=== PATIENT | female | born 1955 | race Caucasian/White ===

== ENCOUNTER 2016-04-05 08:00 | Outpatient (CLI) | payer BC | END 2016-04-05 08:01 | disposition home or self-care (01) | DX: R10.11 Right upper quadrant pain (principal) ==

== ENCOUNTER 2016-04-05 10:05 | Outpatient (CLI) | payer BC | END 2016-04-05 10:06 | disposition home or self-care (01) | DX: R10.11 Right upper quadrant pain (principal); R10.31 Right lower quadrant pain ==

== ENCOUNTER 2016-07-11 10:48 | Outpatient (CLI) | payer BC ==
[2016-07-11 10:56] LABS: CALCIUM 9.2 mg/dL (8.5-10.3); CREATININE 0.8 mg/dL (0.4-1.0); POTASSIUM 3.9 mmol/L (3.5-5.0)
[2016-07-11] MEDS ORDERED: IOPAMIDOL-300 100 ML VIAL IVP ONE (11:43)
[2016-07-11] MEDS ORDERED: IOPAMIDOL-300 50 ML VIAL PO ONE (11:43)
--- NOTE | 2016-07-11 13:16 | CT Report ---
CT OF THE ABDOMEN AND PELVIS WITH CONTRAST: 07/11/2016 CLINICAL INDICATION: Right lower quadrant pain. COMPARISON: CTA of abdomen and pelvis of 11/13/2014. TECHNIQUE: Axial CT images of the abdomen and pelvis were obtained with 100 mL of Isovue-300 intraven ously as well as oral contrast. FINDINGS: Limited evaluation of the lung bases is unremarkable. ABDOMEN: The liver, spleen, pancreas, kidneys and adrenal glands are unremarkable. The patient is sta tus post cholecystectomy. No bowel dilatation, free gas, or free fluid is present. No abdominal adeno kulwant is seen. PELVIS: The appendix is seen in the right lower quadrant, and is normal in caliber. The pelvic organs are unremarkable. No pelvic adenopathy or free fluid is present. The osseous structures demonstrate degenerative changes. IMPRESSION: NORMAL APPENDIX. POSTOPERATIVE CHANGES OF CHOLECYSTECTOMY. NO EVIDENT ETIOLOGY FOR PATIE NT'S RIGHT LOWER QUADRANT PAIN. In accordance with CT protocol optimization, one or more of the following dose reduction techniques w ere utilized for this exam: automated exposure control, adjustment of mA and/or KV based on patient size, or use of iterative reconstructive technique. 13:9:08 JOB #: [id number] EXT JOB #:[id number]
== END 2016-07-11 10:49 | disposition home or self-care (01) ==
LOC: DI 10:48
PROVIDERS: ATTEND Internal Medicine
DX: R10.31 Right lower quadrant pain (principal); Z79.899 Other long term (current) drug therapy; Z90.49 Acquired absence of other specified parts of digestive tract
CPT/HCPCS: 74177; 80048; Q9967

== ENCOUNTER 2017-03-18 11:34 | Outpatient (CLI) | payer BC ==
--- NOTE | 2017-03-18 14:41 | XRAY Report ---
DATE OF SERVICE: 03/18/2017 LEFT HIP AND PELVIS: 03/18/2017 CLINICAL INDICATION: Pain. FINDINGS: Frontal view of the hips and pelvis and frogleg lateral view of the left hip demonstrate moderate osteoarthritis. There is no evidence of fracture or dislocation. No radiopaque foreign body is seen in the soft tissues. IMPRESSION: MODERATE LEFT HIP OSTEOARTHRITIS. TD: 03/18/2017 14:41
== END 2017-03-18 11:35 | disposition home or self-care (01) ==
LOC: DI 11:34
PROVIDERS: ATTEND Internal Medicine
DX: M16.12 Unilateral primary osteoarthritis, left hip (principal)

== ENCOUNTER 2017-04-21 17:14 | Outpatient (CLI) | payer BC | END 2017-04-21 17:15 | disposition EMS.NT | LOC: EMS 17:14 | PROVIDERS: ATTEND Surgery | DX: R07.89 Other chest pain (principal); M25.512 Pain in left shoulder ==

== ENCOUNTER 2018-11-10 21:55 | Outpatient (CLI) | payer BC ==
--- NOTE | 2018-11-11 08:40 | Ultrasound Report ---
Reason: FLANK PAIN Procedure Date: 11/10/2018 Accession Number: [id number] / [id number] Procedure: US - Retroperitoneal CPT Code: FULL RESULT: EXAM: RENAL ULTRASOUND EXAM DATE: 11/10/2018 10:15 PM. CLINICAL HISTORY: Flank pain. COMPARISON: None. TECHNIQUE: Real-time scanning was performed with static images obtained. FINDINGS: Right Kidney: 9.2 x 4.7 x 4.9 cm. Normal echotexture with no stones, contour-deforming masses, or hydronephrosis. Left Kidney: 9.0 x 5.0 x 4.9 cm. Normal echotexture with no stones, contour-deforming masses, or hydronephrosis. Bladder: Bilateral jets seen. The prevoid bladder volume was 351 cc. The postvoid bladder volume was 26 cc. Other: None. IMPRESSION: Normal renal and bladder ultrasound. [facility]
== END 2018-11-10 21:56 | disposition home or self-care (01) ==
LOC: DI 21:55
PROVIDERS: ATTEND Naturopath
DX: R10.9 Unspecified abdominal pain (principal)
CPT/HCPCS: 76770

== ENCOUNTER 2018-12-13 18:26 | Outpatient (CLI) | payer BC ==
--- NOTE | 2018-12-14 07:53 | MRI Report ---
Reason: LOW BACK PAIN, HERNIATION OF LUMBAR DISC Procedure Date: 12/13/2018 Accession Number: [id number] / [id number] Procedure: MRI - Lumbar Spine W/O CPT Code: Final Report FULL RESULT: EXAM: MRI LUMBAR SPINE WITHOUT CONTRAST EXAM DATE: 12/13/2018 07:09 PM. CLINICAL HISTORY: Low back pain, herniation of lumbar disk. COMPARISON: ABDOMEN/PELVIS W/ 07/11/2016 11:40 AM. TECHNIQUE: Multiplanar, multisequence T1-weighted and fluid-sensitive sequences of the lumbar spine from T12 to S1 without contrast. Other: None. FINDINGS: There is a moderate degenerative Schmorl's node seen involving the inferior endplate of L3. There is a subtle area of linear low T1 weighted signal above the Schmorl's node. There is edema involving the inferior one-half aspect of the L3 vertebral body. These findings are new since the comparison abdominal CT sagittal reconstructions. A vertebral body hemangioma is seen on the left at L5. A vertebral body hemangioma is seen near midline at L1. No abnormal signal is seen in the conus medullaris. L1-L2 and L2-L3: No posterior distribution. L3-L4: A mild broad-based posterior disk protrusion is seen. Superior lateral recess narrowing is seen bilaterally. No stenosis. L3-L4: A minimal posterior disk protrusion is seen. Bilateral lateral recess stenosis is seen. Moderate central canal stenosis is present. A 4 mm T2 hyperintensity projects medial to the left facet joint and a 2 mm T2 hyperintensity projects medial to the right facet joint. No foraminal stenosis. L5-S1: Severe loss of disk space height is seen. There is suspicion for some degree of osseous fusion across this disk space. Foraminal osteophyte formation is seen bilaterally. There is mild to moderate right foraminal stenosis. There is left foraminal narrowing. Superior lateral recess narrowing is seen on the right. Facet/ligament flavum hypertrophy is seen. This is greatest at L4-L5 where it is moderate to severe. IMPRESSION: 1. Degenerative disk disease at L3-L4 and L4-L5. 2. Foraminal osteophyte formation and facet/ligamentum flavum hypertrophy result in mild to moderate right foraminal stenosis at L5-S1. 3. Mild to moderate central canal stenosis is seen at L4-L5. This is due predominantly to facet/ligamentum flavum hypertrophy. There is a tiny synovial cyst medial to each facet joint at this level. 4. Degenerative Schmorl's node formation is seen involving the inferior endplate at L3. There is a suggestion of a subtle fracture line just above this Schmorl's node. There is edema associated with these findings. Comment: The following findings are so common in adults without low back pain that while we report their presence, they must be interpreted with caution and in the context of the clinical situation. (Reference Mairak et al, Spine 2001) Prevalence of findings in patients without low back pain: Disk degeneration (any evidence): 92% Disk desiccation/T2 signal loss: 83% Disk height loss: 56% Disk bulge: 64% Disk protrusion: 32% Annular tear/high intensity zone: 38% [facility]
== END 2018-12-13 18:27 | disposition home or self-care (01) ==
LOC: DI 18:26
PROVIDERS: ATTEND Naprapath
DX: M51.26 Other intervertebral disc displacement, lumbar region (principal); M51.36 Other intervertebral disc degeneration, lumbar region; M48.061 Spinal stenosis, lumbar region without neurogenic claudication; M51.37 Other intervertebral disc degeneration, lumbosacral region; M47.816 Spondylosis without myelopathy or radiculopathy, lumbar region; M47.817 Spondylosis without myelopathy or radiculopathy, lumbosacral region; M51.46 Schmorl's nodes, lumbar region; M71.38 Other bursal cyst, other site
CPT/HCPCS: 72148

== ENCOUNTER 2019-08-31 11:27 | Outpatient (CLI) | payer BC | END 2019-08-31 11:28 | disposition home or self-care (01) | LOC: COV 11:27 | PROVIDERS: ATTEND Acupuncturist | DX: R50.9 Fever, unspecified (principal); R19.7 Diarrhea, unspecified; Z20.828 Contact with and (suspected) exposure to other viral communicable diseases ==

== ENCOUNTER 2020-08-23 08:00 | Outpatient (CLI) | payer BC ==
[2020-08-23 20:12] LABS: BILIRUBIN,URINE NEGATIVE (NEGATIVE); GLUCOSE, URINE (UA) NEGATIVE (NEGATIVE); KETONES,URINE (UA) NEGATIVE (NEGATIVE); LEUKOCYTE ESTERASE, URINE NEGATIVE (NEGATIVE); NITRITE,URINE NEGATIVE (NEGATIVE); OCCULT BLOOD,URINE NEGATIVE (NEGATIVE); PROTEIN,URINE NEGATIVE (NEGATIVE); UROBILINOGEN,URINE 0.2 (NORMAL) E.U./dL (NORMAL)
[2020-08-23 20:14] LABS: CLARITY,URINE CLEAR (CLEAR)
[2020-08-23 20:24] LABS: BACTERIA,URINE Rare /HPF (None Seen); MUCUS,URINE Few Strands; RBC,URINE None Seen /HPF (0-5); SQUAMOUS EPITHELIAL CELL,UR NONE SEEN (<= Few); WBC,URINE 0-3 /HPF (0-5)
[2020-08-23 20:25] LABS: CRYSTALS,URINE 26-50 Ca Oxalate /LPF
== END 2020-08-23 08:01 | disposition home or self-care (01) ==
LOC: LAB.R 08:00
PROVIDERS: ATTEND Emergency Medicine
DX: R30.0 Dysuria (principal)
CPT/HCPCS: 81001; 87086

== ENCOUNTER 2020-11-24 16:28 | Outpatient (CLI) | payer BC | END 2020-11-24 16:29 | disposition home or self-care (01) | LOC: COV 16:28 | PROVIDERS: ATTEND Family Medicine | DX: R05.9 Cough, unspecified (principal); M79.10 Myalgia, unspecified site; R53.83 Other fatigue; R68.83 Chills (without fever); R09.81 Nasal congestion; R11.0 Nausea; Z20.822 Contact with and (suspected) exposure to COVID-19 ==